=== PATIENT | male | born 1980 | race Caucasian/White ===

== ENCOUNTER 2016-10-19 11:41 | Emergency (ER) | payer BC, OTHER ==
[2016-10-19 11:59] VITALS: BP 139/86; PULSE 66; TEMP 97.8; BMI 34.4
[2016-10-19] MEDS ORDERED: AMOXICILLIN 500 MG CAPSULE (FP) PO ONE (12:05)
--- NOTE | 2016-10-19 12:05 | PDOC ---
History of Present Illness - General Chief Complaint: Ear Problem Stated Complaint: LEFT EARACHE Time Seen by Provider: 10/19/16 11:46 History Source: Patient Exam Limitations: No Limitations - History of Present Illness Initial Comments: 10/19/16 12:06 36-year-old male with no past medical history presents to the immersed department for left earache since yesterday. Reports sick contacts with a child with otitis media. Denies any fevers. Has developed a mild cough. Past History - Past Medical History Allergies/Adverse Reactions: Allergies Allergy/AdvReac Type Severity Reaction Status Date / Time naproxen [From Naprosyn] Allergy Verified 10/19/16 11:42 Home Medications: Ambulatory Orders Amoxicillin - [Amoxicillin 500mg Capsule -] 500 mg PO TID #21 capsule 10/19/16 Ibuprofen [Advil -] 400 mg PO ONCE 10/19/16 Suicide Attempt (Hx): No Other medical history: DENIES - Immunization History Immunization Up to Date: Yes - Psycho/Social/Smoking Cessation Hx Anxiety: No Suicidal Ideation: No Smoking Status: No Smoking History: Never smoked Have you smoked in the past 12 months: No Number of Cigarettes Smoked Daily: 0 If you are a former smoker, when did you quit?: 15 yrs ago Information on smoking cessation initiated: No Hx Alcohol Use: No Drug/Substance Use Hx: No Substance Use Type: None Review of Systems - Review of Systems Able to Perform ROS?: Yes Comments:: 10/19/16 12:06 GENERAL/CONSTITUTIONAL: No fever, weakness. HEAD, EYES, EARS, NOSE AND THROAT: No change in vision. No discharge. No sore throat. +left ear ache CARDIOVASCULAR: No chest pain or shortness of breath. RESPIRATORY: +mild cough. No wheezing, or hemoptysis. GASTROINTESTINAL: No abdominal pain, nausea, vomiting, diarrhea, or decreased PO intolerance. GENITOURINARY: No dysuria, frequency, or change in urination. MUSCULOSKELETAL: No joint or muscle swelling or pain. No neck or back pain. SKIN: No rash NEUROLOGIC: No headache, vertigo, loss of consciousness, or change in strength/ sensation. ENDOCRINE: No increased thirst. No abnormal weight change. HEMATOLOGIC/LYMPHATIC: No anemia, easy bleeding, or history of blood clots. ALLERGIC/IMMUNOLOGIC: No hives or skin allergy. *Physical Exam - Vital Signs Last Vital Signs Temp Pulse Resp BP Pulse Ox 97.8 F 66 20 139/86 99 10/19/16 11:42 10/19/16 11:42 10/19/16 11:42 10/19/16 11:42 10/19/16 11:42 - Physical Exam Comments: 10/19/16 12:07 GENERAL: Awake, alert, and fully oriented, in no acute distress. HEAD: No signs of trauma EYES: PERRLA, EOMI, sclera anicteric, conjunctiva clear ENT: Auricles normal inspection, hearing grossly normal, nares patent, oropharynx clear without exudates. Erythematous TMs b/l with L worse than R, no purulent drainage. NECK: Normal ROM, supple, no lymphadenopathy, JVD, or masses LUNGS: Breath sounds equal, clear to auscultation bilaterally. No wheezes, and no crackles HEART: Regular rate and rhythm, normal S1 and S2, no murmurs, rubs or gallops ABDOMEN: Soft, nontender, normoactive bowel sounds. No guarding, no rebound. No masses EXTREMITIES: Normal range of motion, no edema. No clubbing or cyanosis. No cords, erythema, or tenderness NEUROLOGICAL: Cranial nerves II through XII grossly intact. Normal speech, normal gait SKIN: Warm, Dry, normal turgor, no rashes or lesions noted. Medical Decision Making - Medical Decision Making 10/19/16 12:07 Vital Signs Temp Pulse Resp BP Pulse Ox 97.8 F 66 20 139/86 99 10/19/16 11:42 10/19/16 11:42 10/19/16 11:42 10/19/16 11:42 10/19/16 11:42 Appears to have otitis media. Will treat with amoxicillin and have pt follow up with PMD. Supportive care. I discussed the physical exam findings, ancillary test results and final diagnoses with the patient. I answered all of the patient's questions. The patient was satisfied with the care received and felt comfortable with the discharge plan and treatment plan. The patient will call their primary care physician within 24 hours to arrange follow-up and will return to the Emergency Department with any new, persistant or worsening symptoms. *DC/Admit/Observation/Transfer Diagnosis at time of Disposition: Otitis media Qualifiers: Otitis media type: other nonsuppurative Laterality: bilateral Chronicity: acute Recurrence: not specified Qualified Code(s): H65.193 - Other acute nonsuppurative otitis media, bilateral - Discharge Dispostion Disposition: HOME Condition at time of disposition: Stable Admit: No - Prescriptions Prescriptions: Amoxicillin - [Amoxicillin 500mg Capsule -] 500 mg PO TID #21 capsule - Patient Instructions Printed Discharge Instructions: Middle Ear Infection, Ear Infections ( Alternative Therapy) Additional Instructions: Take 650 mg tylenol every 4 hours as needed for ear ache. Take the amoxicillin as prescribed for a week. Follow up with your primary care physician. It will take several days before you feel better.
[2016-10-19] MEDS ORDERED: AMOXICILLIN 250 MG CAPSULE ONE (12:07)
== END 2016-10-19 12:10 | disposition home or self-care (01) ==
LOC: FER 11:41
DX: H65.193 Other acute nonsuppurative otitis media, bilateral (principal); Z87.891 Personal history of nicotine dependence
CPT/HCPCS: 99282-25

== ENCOUNTER 2016-12-04 09:27 | Emergency (ER) | payer OTHER ==
[2016-12-04 09:33] VITALS: BP 123/81; PULSE 99; TEMP 97.9; BMI 34.4
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
[2016-12-04] MEDS ORDERED: IBUPROFEN 400 MG TABLET (FP) PO ONE ×2 (10:01→10:13)
[2016-12-04] MEDS ORDERED: CYCLOBENZAPRINE HCL 10 MG TABLET (FP) PO ONE (10:01)
[2016-12-04 10:11] LABS: VENOUS BLOOD GAS HCO3 28.5 meq/L (19-25); VENOUS PH 7.37 (7.32-7.42)
[2016-12-04] MEDS ORDERED: CYCLOBENZAPRINE HCL 10 MG TABLET (FP) ONE (10:13)
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
--- NOTE | 2016-12-05 14:55 | EKG ---
Test Reason : Blood Pressure : / mmHG Vent. Rate : 078 BPM Atrial Rate : 078 BPM P-R Int : 140 ms QRS Dur : 088 ms QT Int : 348 ms P-R-T Axes : 037 008 015 degrees QTc Int : 396 ms NORMAL SINUS RHYTHM CANNOT RULE OUT ANTERIOR INFARCT , AGE UNDETERMINED ABNORMAL ECG WHEN COMPARED WITH ECG OF 18-MAR-2016 14:04, NO SIGNIFICANT CHANGE WAS FOUND Confirmed by MO BEAR MD ([id number]) on 12/05/2016 2:55:03 PM Referred By: LALY Confirmed By:MO BEAR MD
== END 2016-12-04 10:48 | disposition home or self-care (01) ==
LOC: JERFT 09:27
DX: J70.5 Respiratory conditions due to smoke inhalation (principal); X58.XXXA Exposure to other specified factors, initial encounter; Y93.89 Activity, other specified; Y92.9 Unspecified place or not applicable; Y99.0 Civilian activity done for income or pay; Z87.891 Personal history of nicotine dependence
CPT/HCPCS: 82375; 82803; 93005; 93010; 99281-25

== ENCOUNTER 2017-02-15 09:00 | Emergency (ER) | payer OTHER ==
--- NOTE | 2017-02-15 09:16 | PDOC ---
History of Present Illness - General Chief Complaint: Injury Stated Complaint: LEFT FOOT INJURY Time Seen by Provider: 02/15/17 09:11 History Source: Patient Exam Limitations: No Limitations - History of Present Illness Initial Comments: 02/15/17 09:16 HISTORY OF PRESENT ILLNESS: This patient is a 36 yo otherwise healthy [employer] who presents to the ER with a complaint of left foot pain PT states that he dropped an ax on his foot He estimates that it weighed 25-30 pounds He was wearing work boots at the time At the time, his foot minimally hurt This morning, pain increased significantly Hs is having difficulty walking When walking pain is 9/10, described as sharp Pt also has pain in his ankle but attributes this to how he has adjusted his walking No bruising (+) Swelling noted of the left foot 02/15/17 09:21 GENERAL/CONSTITUTIONAL: No: fever, chills, weakness, loss of appetite. MUSCULOSKELETAL: Yes: left foot pain SKIN AND BREASTS: No: bruising. NEUROLOGIC: No: numbness or sensory deficit GENERAL: The patient is in no acute distress. EXTREMITIES: Left foot pain with palpation and with ambulation, tender to palpation, mild swelling, no bruising noted, soft compartments NEUROLOGICAL: Sensation in tact MUSCULOSKELETAL: (+) left instep tender SKIN: No bruising, no lacerations noted Past History - Past Medical History Allergies/Adverse Reactions: Allergies Allergy/AdvReac Type Severity Reaction Status Date / Time naproxen [From Naprosyn] Allergy Verified 02/15/17 09:11 Home Medications: Ambulatory Orders Ibuprofen [Motrin -] 800 mg PO Q6H #30 tablet 12/04/16 Ibuprofen [Motrin -] 600 mg PO TID PRN #21 tablet 02/15/17 Methocarbamol [Robaxin -] 500 mg PO TID PRN #21 tablet 02/15/17 Suicide Attempt (Hx): No - Immunization History Immunization Up to Date: Yes - Psycho/Social/Smoking Cessation Hx Anxiety: No Suicidal Ideation: No Smoking Status: No Smoking History: Never smoked Have you smoked in the past 12 months: No Number of Cigarettes Smoked Daily: 0 If you are a former smoker, when did you quit?: 15 yrs ago Hx Alcohol Use: No Drug/Substance Use Hx: No Substance Use Type: None Medical Decision Making - Medical Decision Making 02/15/17 09:26 Metatarsal fracture vs bruise Trauma to left foot Will do x ray Will give motrin D/C to home 02/15/17 10:18 x ray appears negative Will discharge in hard soled shoe Will give motrin and robaxin 02/15/17 10:25 02/15/17 10:27 *DC/Admit/Observation/Transfer Diagnosis at time of Disposition: Injury of foot, left Qualifiers: Encounter type: initial encounter Qualified Code(s): S99.922A - Unspecified injury of left foot, initial encounter - Discharge Dispostion Disposition: HOME Condition at time of disposition: Good Admit: No - Prescriptions Prescriptions: Ibuprofen [Motrin -] 600 mg PO TID PRN #21 tablet PRN Reason: Pain Methocarbamol [Robaxin -] 500 mg PO TID PRN #21 tablet PRN Reason: Pain - Referrals Referrals: Wilber Chavez [Primary Care Provider] - - Patient Instructions Printed Discharge Instructions: DI for Foot Pain Additional Instructions: Return to the emergency department immediately with ANY new, persistent or worsening symptoms. Continue any medications as previously prescribed by your physician. You should follow up with your primary doctor and an orthopedist as soon as possible regarding today's emergency department visit. Please make sure your doctor reviews the results of your emergency evaluation. Thank you for coming to the [facility] today for your care. It was a pleasure to see you today. Please note that your evaluation is INCOMPLETE until you follow-up with your doctor. - Post Discharge Activity Work/School Note: Back to Work
[2017-02-15 09:20] VITALS: BP 148/94; PULSE 77; TEMP 98.1; BMI 35.2
[2017-02-15] MEDS ORDERED: IBUPROFEN 600 MG TABLET (FP) PO ONE ×2 (09:20→09:26)
== END 2017-02-15 10:42 | disposition home or self-care (01) ==
LOC: FER 09:00
DX: S99.922A Unspecified injury of left foot, initial encounter (principal); W20.8XXA Other cause of strike by thrown, projected or falling object, initial encounter; Y93.89 Activity, other specified; Y92.9 Unspecified place or not applicable; Y99.0 Civilian activity done for income or pay; Z87.891 Personal history of nicotine dependence
CPT/HCPCS: 73610-TC-LT; 73630-TC-LT; 99282-25

== ENCOUNTER 2017-10-22 08:55 | Emergency (ER) | payer BC, OTHER ==
[2017-10-22 09:13] VITALS: BP 128/78; PULSE 89; TEMP 99; BMI 29.4
--- NOTE | 2017-10-22 09:28 | PDOC ---
History of Present Illness - General Chief Complaint: Cold Symptoms Stated Complaint: FLU Time Seen by Provider: 10/22/17 09:14 - History of Present Illness Initial Comments: 10/22/17 09:25 Chief complaint runny nose cough congestion fever body aches History of present illness: 37 years old no past medical history presents to the ED with four-day history of flulike symptoms. Low-grade fevers chills body aches running nose cough sore throat tolerating fluids no neck pain no neck stiffness mild nausea no vomiting no diarrhea no travel no sick contacts symptoms are moderate persistent constant somewhat alleviated by Motrin no exacerbating factors Past History - Past Medical History Allergies/Adverse Reactions: Allergies Allergy/AdvReac Type Severity Reaction Status Date / Time naproxen [From Naprosyn] Allergy Verified 10/22/17 09:09 Home Medications: Ambulatory Orders Ibuprofen [Motrin -] 600 mg PO TID PRN #21 tablet 02/15/17 COPD: No - Immunization History Immunization Up to Date: Yes - Suicide/Smoking/Psychosocial Hx Smoking Status: No Smoking History: Never smoked Have you smoked in the past 12 months: No Number of Cigarettes Smoked Daily: 0 If you are a former smoker, when did you quit?: 15 yrs ago Hx Alcohol Use: Yes (SOCIAL) Drug/Substance Use Hx: No Substance Use Type: None Review of Systems - Review of Systems Comments:: 10/22/17 09:25 ROS: A complete review of 10 out of 10 review of systems is taken and is negative apart from what is previously mentioned below and in the HPI. *Physical Exam - Vital Signs Last Vital Signs Temp Pulse Resp BP Pulse Ox 99.0 F 89 16 128/78 99 10/22/17 09:07 10/22/17 09:07 10/22/17 09:07 10/22/17 09:07 10/22/17 09:07 - Physical Exam Comments: 10/22/17 09:26 Vitals: Triage Vital signs reviewed General Appearance: no acute distress, well nourished well developed, Head: Atraumatic, Eyes: Pupils equal reactive round, extraocular movement intact Nose: Nares patent bilaterally;+ nasal congestion Throat: Posterior oropharynx with mild erythema, mucous membranes moist, Neck: Supple;No Nucal rigidity Chest Wall: Nontender Cardiac: Regular rate and rhythym, no murmurs, no rubs, no gallops, Lungs: Clear to auscultation bilateral, good air movement bilaterally, Abdomen: Soft, non distended, normal bowel sounds, non tender to palpation Extremities: Full range of motion to all extremities, no cyanosis, clubbing, or edema Skin: Warm and dry, no rashes or lesions, no rash, no petechiae Neuro: AOX3; Cranial Nerves 2-12 grossly intact, Strength intact to all extremities, Sensation intact to all extremities,gait normal Psych: normal mood, normal affect Medical Decision Making - Medical Decision Making 10/22/17 09:26 Well-appearing no apparent distress. History and examination consistent with influenza. Patient not in window for Tamiflu tolerating fluids we'll recommend supportive measures work note and strict return instructions were severe worsening symptoms Findings, the need for follow-up, strict return instructions discussed with patient. *DC/Admit/Observation/Transfer Diagnosis at time of Disposition: Influenza - Discharge Dispostion Disposition: HOME Condition at time of disposition: Good Admit: No - Referrals Referrals: Tammy Bedolla MD [Primary Care Provider] - - Patient Instructions Printed Discharge Instructions: Influenza Additional Instructions: Alternate 600 mg Motrin every 3 hours with 500 mg Tylenol. Drink plenty of fluids. Avoid contact with other people while febrile or sick. Return to the emergency department for any severe worsening symptoms difficulty breathing difficulty tolerating fluids if you feel very sick or for any concerns. - Post Discharge Activity Forms/Work/School Notes: Back to Work
== END 2017-10-22 09:38 | disposition home or self-care (01) ==
LOC: FER 08:55
DX: J11.1 Influenza due to unidentified influenza virus with other respiratory manifestations (principal); Z87.891 Personal history of nicotine dependence
CPT/HCPCS: 99281-25

== ENCOUNTER 2024-01-19 09:56 | Emergency (ER) | payer BC, OTHER ==
[2024-01-19 10:17] VITALS: BP 124/81; PULSE 106; RESP 18; TEMP 97.8; BMI 30.1
[2024-01-19 11:29] LABS: HEMOGLOBIN 16.1 G/dL (11.7-16.9); MCH 25.8 pg (25.7-33.7); MCHC 32.3 g/dl (32.0-35.9); MEAN CELL VOLUME 80.1 fl (80-96); MEAN PLT VOLUME 10.8 fl (7.5-11.1); PLATELET COUNT 203.6 10^3/uL (134-434); RBC 6.24 10^6/uL (4.00-5.60); RDW 17.7 % (11.9-15.9); WHITE BLOOD COUNT 4.7 10^3/uL (4.0-10.8)
[2024-01-19 11:35] LABS: ADD RBC MORPHOLOGY YES
[2024-01-19 11:40] LABS: ALBUMIN 4.4 g/dl (3.4-5.0); BILIRUBIN,TOTAL 0.5 mg/dl (0.2-1); CALCIUM 9.8 mg/dl (8.5-10.1); POTASSIUM 4.4 mmol/L (3.5-5.1); TOT PROT 7.5 g/dl (6.4-8.2)
[2024-01-19 12:31] LABS: ANISOCYTOSIS 1+; PLATELET ESTIMATE ADEQUATE
== END 2024-01-19 12:20 | disposition home or self-care (01) ==
LOC: FER 09:56
DX: R19.01 Right upper quadrant abdominal swelling, mass and lump (principal)
CPT/HCPCS: 36415; 74177-TC; 80053; 85025; 99285-25; Q9967